=== PATIENT | male | born 1985 | race Caucasian/White ===

== ENCOUNTER 2017-07-12 16:06 | Emergency (ER) | payer MEDICAID, OTHER ==
[~2017-07-12] VITALS: Ht 182.9 cm; Wt 100.0 kg
[2017-07-12] MEDS ORDERED: LORA-269 PO (17:07)
[2017-07-12] MEDS ORDERED: FOLI0.4T2 PO (17:07)
[2017-07-12] MEDS ORDERED: THI100T PO (17:07)
[2017-07-12 17:17] VITALS: BP 145/65
== END 2017-07-12 17:18 | disposition home or self-care (01) ==
LOC: ER 16:08
DX: Z02.89 Encounter for other administrative examinations (principal); F10.129 Alcohol abuse with intoxication, unspecified; Z79.899 Other long term (current) drug therapy
CPT/HCPCS: 99283